=== PATIENT | male | born 1990 | race Caucasian/White ===

== ENCOUNTER 2024-04-11 16:12 | Emergency (ER) | payer SELFPAY ==
[2024-04-11] MEDS: Fluorescein 1 MG Ophth Strip EYERT ONE (17:29)
== END 2024-04-11 18:05 | disposition home or self-care (01) ==
LOC: JD.ED 16:12
DX: T15.01XA Foreign body in cornea, right eye, initial encounter (principal); Z79.899 Other long term (current) drug therapy; W44.8XXA Other foreign body entering into or through a natural orifice, initial encounter
CPT/HCPCS: 65220; 99283-25